=== PATIENT | female | born 1980 | race African-American/Black ===

== ENCOUNTER 2017-04-24 12:42 | Emergency (ER) | payer OTHER ==
[~2017-04-24] VITALS: Ht 160 cm; Wt 86.0 kg
[~2017-04-24 12:42] MED LIST: ENDOCET 5-3251 EACH PO; FEOSOL325 MG PO; IBUPROFEN800 MG PO; LO-DOSE ASPIRIN81 M2 PO; METOPROLOL SUCC25 MG PO; METOPROLOL TART25 MG PO; PRENATAL TABLE1 EAC3 PO; PROMETHAZINE HC25 M1 PO; ZANTAC150 MG PO
[2017-04-24 13:44] LABS: HEMATOCRIT 35.7 % (36.0-46.0); MCH 27.3 PG (29.0-34.0); MCHC 33.9 G/DL (30.0-36.0); MCV 80.4 FL (83-99); MEAN PLAT.VOLUME 11.3 uM^3 (9.5-12.4); PLATELET COUNT 292 K/uL (156-360); RBC DIS.WIDTH-CV 12.5 % (11.8-14.6); RBC DIS.WIDTH-SD 35.8 % (39-53); RED BLOOD COUNT 4.44 M/uL (3.80-5.20); WHITE BLOOD COUNT 7.5 K/uL (4.1-10.2)
[2017-04-24 13:51] LABS: CHLORIDE 107 mEq/L (99-109); POTASSIUM 3.8 mEq/L (3.7-5.4); SODIUM 139 mEq/L (136-147)
[2017-04-24 13:53] LABS: GLUCOSE 79 mg/dL (70-99)
[2017-04-24 13:55] LABS: ANION GAP 7 MEQ/L (2-14)
[2017-04-24 13:56] LABS: TOTAL BILIRUBIN 2.2 mg/dL (0.0-1.0)
[2017-04-24 13:57] LABS: ALKALINE PHOSPHATASE 75 IU/L (3-129); GFR ESTIMATE (CALCULATED) > 59 mL/min/
[2017-04-24 13:58] LABS: UREA NITROGEN (BUN) 7 mg/dL (9-23)
[2017-04-24 14:01] LABS: LIPASE 55 U/L (1.0-51.0)
[2017-04-24 14:07] LABS: QUANTITATIVE HCG < 4.0 MIU/ML
[2017-04-24 14:59] LABS: ADD MIUA? YES; BILIRUBIN NEGATIVE; BLOOD MODERATE; COLOR YELLOW ((YELLOW)); GLUCOSE (STRIP) NEGATIVE; KETONES NEGATIVE; LEUKOCYTES NEGATIVE; NITRITE NEGATIVE; PROTEIN (STRIP) NEGATIVE; UROBILINOGEN 0.2 MG/DL (0.2-1.0)
[2017-04-24 15:02] LABS: BACTERIA NONE SEEN /HPF; EPITHELIAL CELLS 1+ /HPF; MUCUS TRACE /LPF; RED BLOOD CELLS 0-5 /HPF (0-5); WHITE BLOOD CELLS 0-5 /HPF (0-5)
[2017-04-24] MEDS ORDERED: BENTYL10 MG PO (15:40)
[2017-04-24] MEDS ORDERED: ZOFRAN ODT4 MG PO (15:40)
[2017-04-24 16:07] VITALS: BP 125/64
== END 2017-04-24 16:07 | disposition home or self-care (01) ==
LOC: EME 12:42
PROVIDERS: Nurse Practitioner Family
DX: M96.840 Postprocedural hematoma of a musculoskeletal structure following a musculoskeletal system procedure (principal); R10.32 Left lower quadrant pain; R11.0 Nausea; Y83.8 Other surgical procedures as the cause of abnormal reaction of the patient, or of later complication, without mention of misadventure at the time of the procedure; I10 Essential (primary) hypertension; K21.9 Gastro-esophageal reflux disease without esophagitis; E78.5 Hyperlipidemia, unspecified
CPT/HCPCS: 74177; 80053; 81003; 83690; 84702; 85027; 99281; 99284; J1885; J2405; J7030